=== PATIENT | female | born 1980 | race Two or more races ===

== ENCOUNTER 2017-09-21 10:01 | Emergency (ER) | payer MEDICAID ==
[2017-09-21 10:36] LABS: BASOPHILS 0.1 % (0-2); EOSINOPHILS 0.6 % (0-7); HEMATOCRIT 40.1 % (36.0-48.0); HEMOGLOBIN 13.7 g/dL (12-16); IMMATURE GRANULOCYTES 0.2 % (0-5); MCH 29.1 pg (26.0-34.0); MCHC 34.2 g/dL (31.0-37.0); MCV 85.3 fL (80.0-100.0); MEAN PLATELET VOLUME 10.2 fL (7.4-10.4); MONOCYTES 6.4 % (2-11); NEUTROPHILS 80.7 % (40-80); PLATELET COUNT 214 10x3/uL (130-400); RDW 13.4 % (11.5-14.5); WBC 8.4 10x3/uL (4.8-10.8)
[2017-09-21 10:41] LABS: HCG SERUM POSITIVE (NEGATIVE)
[2017-09-21 11:40] LABS: APPEARANCE HAZY (CLEAR); COLOR YELLOW (YELLOW)
[2017-09-21 11:42] LABS: BILIRUBIN NEGATIVE (NEGATIVE); GLUCOSE NEGATIVE (NEGATIVE); KETONE SMALL mg/dL (NEGATIVE); NITRITE NEGATIVE (NEGATIVE); PROTEIN NEGATIVE (NEGATIVE); UROBILINOGEN NORMAL (NORMAL)
[2017-09-21 11:43] LABS: BACTERIA MODERATE /hpf (NONE SEEN); EPITHELIAL CELLS 0-5 /hpf (0-5); RED CELLS - URINE 0-5 /hpf (0-5); WHITE CELLS - URINE 0-5 /hpf (0-5)
[2017-09-21 11:44] LABS: SPERMATOZOA PRESENT /hpf (NONE SEEN)
== END 2017-09-21 14:46 | disposition home or self-care (01) ==
LOC: D.ER 10:01
PROVIDERS: Emergency Medicine; Nurse Practitioner Family
DX: O23.42 Unspecified infection of urinary tract in pregnancy, second trimester (principal); Z3A.15 15 weeks gestation of pregnancy

== ENCOUNTER → 2018-03-20 10:35 | Outpatient (CLI) | payer MEDICAID ==
[~2018-03-20 10:35] MED LIST: CYCLOBENZAPRINE10 MG PO; GLYBURIDE2.5 MG PO; IBUPROFEN800 MG PO; PERCOCET 5-3251 TAB PO; VISTARIL50 MG PO
[2018-04-04 11:07] VITALS: BMI 32.2
== END | disposition home or self-care (01) ==
LOC: D.LDO 10:35
DX: O24.419 Gestational diabetes mellitus in pregnancy, unspecified control (principal); Z3A.37 37 weeks gestation of pregnancy

== ENCOUNTER → 2018-03-24 12:41 | Outpatient (CLI) | payer MEDICAID ==
[2018-04-04 11:07] VITALS: BMI 32.2
== END | disposition home or self-care (01) ==
LOC: D.LDO 12:41
DX: O24.419 Gestational diabetes mellitus in pregnancy, unspecified control (principal); Z3A.37 37 weeks gestation of pregnancy

== ENCOUNTER → 2018-03-27 10:58 | Outpatient (CLI) | payer MEDICAID ==
[2018-04-04 11:07] VITALS: BMI 32.2
== END | disposition home or self-care (01) ==
LOC: D.LDO 10:58
DX: O24.913 Unspecified diabetes mellitus in pregnancy, third trimester (principal); Z3A.38 38 weeks gestation of pregnancy

== ENCOUNTER → 2018-03-31 10:21 | Outpatient (CLI) | payer MEDICAID ==
[2018-04-04 11:07] VITALS: BMI 32.2
== END | disposition home or self-care (01) ==
LOC: D.LDO 10:21
DX: O26.893 Other specified pregnancy related conditions, third trimester (principal); Z3A.38 38 weeks gestation of pregnancy

== ENCOUNTER 2018-04-03 10:05 | Inpatient (IN) | payer MEDICAID ==
[2018-04-02 11:04] LABS: HEMATOCRIT 35.8 % (36.0-48.0); MCH 28.2 pg (26.0-34.0); MCHC 33.5 g/dL (31.0-37.0); MCV 84.2 fL (80.0-100.0); MEAN PLATELET VOLUME 11.1 fL (7.4-10.4); RBC 4.25 10x6/uL (4.00-5.40); RDW 13.8 % (11.5-14.5); WBC 8.6 10x3/uL (4.8-10.8)
[~2018-04-03] VITALS: Ht 162.6 cm; Wt 85.3 kg
--- NOTE | ~2018-04-03 | DS ---
PATIENT:CAROLINE MURPHY :80 MEDICAL RECORD: [id number] DISCHARGE SUMMARY ADMISSION DATE: 04/03/18 DISCHARGE DATE: 04/05/18 DATE OF ADMISSION: 04/03/2018. DATE OF DISCHARGE: 04/05/2018. ADMISSION DIAGNOSES: 1. Term with history of prior sections. 2. Advanced maternal age. 3. Gestational diabetes. 4. Undesired fertility. DISCHARGE DIAGNOSES: 1. Mother delivered at term. 2. History of section. 3. Advanced maternal age. 4. Gestational diabetes. 5. Undesired fertility. PROCEDURES PERFORMED: 1. Repeat low transverse section. 2. Bilateral tubal ligation. SURGEON: Doug Pastrana MD HISTORY OF PRESENT ILLNESS: See the H&P in the chart. SUMMARY OF HOSPITALIZATION: The patient was admitted to the hospital and underwent section with tubal ligation without incident. At the time of discharge, she is tolerating a regular diet. The patient's exam in the morning of discharge and incision is clean, dry and intact and she is ambulating without difficulty. DISCHARGE MEDICATIONS: Include Percocet and Motrin. She will follow up in 2 weeks for an incision check. and postoperative precautions have been reviewed. TRANSINT:[id number] Voice Confirmation ID: [id number] DOCUMENT ID: [id number] DOUG PASTRANA MD at 1126 CC: [id number] DICTATION DATE: 04/05/18 0254 APPLICATIONS ENGINEERING MANAGER: 04/05/18 1152 DIS IN 04/05/18 [id number] [place] [id number]
[2018-04-03 07:37] LABS: RAPID PLASMA REAGIN Non Reactive (Non Reactive)
[2018-04-03] MEDS ORDERED: CYCLOBENZAPRINE10 MG PO (10:32)
[2018-04-03 11:06] VITALS: BP 133/86; BMI 32.3
[2018-04-03 14:58] VITALS: BP 143/72
[2018-04-03 18:35] VITALS: BP 147/75
[2018-04-03 21:17] VITALS: BP 144/82
[2018-04-04] VITALS (8 sets, daily range): BP systolic 129–148; BP diastolic 72–85; Ht 162.6 cm; Wt 85.3 kg
[2018-04-04 05:23] LABS: BASOPHILS 0.1 % (0-2); EOSINOPHILS 0.2 % (0-7); HEMATOCRIT 34.7 % (36.0-48.0); HEMOGLOBIN 11.4 g/dL (12-16); IMMATURE GRANULOCYTES 0.3 % (0-5); LYMPHOCYTES 8.1 % (15-50); MCH 27.7 pg (26.0-34.0); MCHC 32.9 g/dL (31.0-37.0); MCV 84.4 fL (80.0-100.0); MEAN PLATELET VOLUME 11.8 fL (7.4-10.4); MONOCYTES 7.3 % (2-11); PLATELET COUNT 163 10x3/uL (130-400); RBC 4.11 10x6/uL (4.00-5.40); RDW 13.8 % (11.5-14.5)
[2018-04-04 05:26] LABS: WBC 11.2 10x3/uL (4.8-10.8)
[2018-04-04] MEDS ORDERED: GLYBURIDE2.5 MG PO (12:38)
[2018-04-04] MEDS ORDERED: VISTARIL50 MG PO (12:42)
[2018-04-05 07:53] VITALS: BP 134/81
[2018-04-05] MEDS ORDERED: IBUPROFEN800 MG PO (12:55)
[2018-04-05] MEDS ORDERED: PERCOCET 5-3251 TAB PO (12:56)
== END 2018-04-05 14:10 | disposition home or self-care (01) | DRG 765 ==
LOC: D.LD 10:05 → D.SDCHOLD 12:00 → D.LD 04-04 11:11
PROVIDERS: Obstetrics & Gynecology
PROC: 10D00Z1 Extraction of Products of Conception, Low, Open Approach (ICD-10-PCS; principal; 2018-04-03 12:00)
PROC: 0UB70ZZ Excision of Bilateral Fallopian Tubes, Open Approach (ICD-10-PCS; 2018-04-03 12:00)
DX: O34.211 Maternal care for low transverse scar from previous cesarean delivery (principal); O41.03X0 Oligohydramnios, third trimester, not applicable or unspecified; Z3A.39 39 weeks gestation of pregnancy; Z37.0 Single live birth; O99.824 Streptococcus B carrier state complicating childbirth; Z30.2 Encounter for sterilization; Z30.09 Encounter for other general counseling and advice on contraception